=== PATIENT | female | born 1995 | race Caucasian/White ===

== ENCOUNTER 2016-12-06 00:56 | Emergency (ER) | payer MEDICAID ==
[~2016-12-06] VITALS: Ht 167.6 cm; Wt 63.6 kg
[~2016-12-06 00:56] MED LIST: MOTRIN 800800 MG/TAB PO; PERCOCET 325 MG1 TA2 PO
[2016-12-06 01:01] VITALS: BP 128/69; PULSE 78; TEMP 98.5
== END 2016-12-06 01:37 | disposition home or self-care (01) ==
LOC: COL.ER 00:56
DX: M54.6 Pain in thoracic spine (principal)

== ENCOUNTER 2016-12-13 21:43 | Emergency (ER) | payer MEDICAID ==
[~2016-12-13] VITALS: Ht 167.6 cm; Wt 63.6 kg
[2016-12-13 21:46] VITALS: BP 141/70; TEMP 98.1
[2016-12-13] MEDS ORDERED: PROTONIX 40MG T40 MG PO (22:59)
[2016-12-13 23:20] VITALS: PULSE 74
== END 2016-12-13 23:20 | disposition home or self-care (01) ==
LOC: COL.ER 21:43
DX: R07.9 Chest pain, unspecified (principal); F17.210 Nicotine dependence, cigarettes, uncomplicated

== ENCOUNTER 2017-04-01 12:09 | Emergency (ER) | payer MEDICAID ==
[~2017-04-01] VITALS: Ht 167.6 cm; Wt 65.9 kg
[~2017-04-01 12:09] MED LIST changes: +PROTONIX 40MG T40 MG PO
[2017-04-01 12:12] VITALS: BP 121/72; PULSE 81; TEMP 97.7
[2017-04-01] MEDS ORDERED: CELEXA 20MG20 MG/TAB PO (12:15)
[2017-04-01] MEDS ORDERED: MOBIC15 MG PO (12:15)
[2017-04-01] MEDS ORDERED: FLEXERIL5 MG PO (12:15)
== END 2017-04-01 14:00 | disposition home or self-care (01) ==
LOC: COL.ER 12:09
DX: J06.9 Acute upper respiratory infection, unspecified (principal); J02.9 Acute pharyngitis, unspecified; F32.9 Major depressive disorder, single episode, unspecified; F17.210 Nicotine dependence, cigarettes, uncomplicated

== ENCOUNTER 2017-04-09 17:00 | Outpatient (RCR) | payer MEDICAID ==
[~2017-04-09 17:00] MED LIST changes: +CELEXA 20MG20 MG/TAB PO; +FLEXERIL5 MG PO; +MOBIC15 MG PO
== END 2017-04-11 10:12 | disposition still patient (30) ==
LOC: WSPT 17:00
DX: M54.5 Low back pain (principal)

== ENCOUNTER → 2017-05-09 | Outpatient (CLI) | payer MEDICAID | LOC: COL.RAD 09:30 | DX: M41.9 Scoliosis, unspecified (principal) ==

== ENCOUNTER 2017-09-05 08:52 | Emergency (ER) | payer SELFPAY ==
[~2017-09-05] VITALS: Ht 167.6 cm; Wt 67.7 kg
[~2017-09-05 08:52] MED LIST changes: +VISTARIL 2525 MG/CAP PO
[2017-09-05 08:55] VITALS: TEMP 97
[2017-09-05 09:23] LABS: COLLECTION METHOD CLEAN CATCH
[2017-09-05 09:35] LABS: MUCOUS Present /lpf; PH 5 (5-8); SQUAMOUS EPITHELIAL 0-2 /hpf; URINE APPEARANCE Clear; URINE BACTERIA None Seen /hpf; URINE BILIRUBIN Negative (NEGATIVE); URINE BLOOD Negative (NEGATIVE); URINE COLOR Yellow; URINE GLUCOSE Negative (NEGATIVE); URINE KETONE Negative (NEGATIVE); URINE LEUKOCYTE ESTERASE Negative (NEGATIVE); URINE NITRATE Negative (NEGATIVE); URINE PROTEIN(semi-quant) Negative (NEGATIVE); URINE RBC 0-2 /hpf; URINE UROBILINOGEN Negative (NEGATIVE)
[2017-09-05 09:39] LABS: BASO # 0.1 (0.0-0.2); BASO % 0.8 % (0.0-2.0); EOS # 0.3 (0.0-0.7); EOS % 3.4 % (0-4.0); GRAN # 5.2 (1.4-6.5); GRAN % 64.7 % (42.2-75.2); HEMATOCRIT 43.7 % (37.0-47.0); HEMOGLOBIN 14.7 g/dl (12.5-16.0); LYMPH # 1.9 (1.2-3.4); LYMPH % 24.1 % (20.0-51.0); MEAN CELL VOLUME 88 fl (80.0-100.0); MEAN CORPUSCULAR HEMOGLOBIN 30 pg (27.0-31.0); MEAN CORPUSCULAR HGB CONC 34 g/dl (33.0-37.0); MEAN PLATELET VOLUME 9.1 fl (7.4-10.4); MONO # 0.6 (0.1-0.6); MONO % 6.9 % (1.7-9.3); PLATELET COUNT 275 K/mm3 (130-400); RED BLOOD COUNT 4.98 M/mm3 (4.10-5.30); REDCELL DISTRIBUTION WIDTH-CV 12.4 % (11.5-14.5)
[2017-09-05 09:50] LABS: ALANINE AMINOTRANSFERASE 35 U/L (9-52); ALBUMIN 4.8 gm/dL (3.5-5.0); ALKALINE PHOSPHATASE 54 U/L (50-136); ANION GAP 11 mmol/L (7-16); AST,SGOT 26 U/L (15-37); BILIRUBIN,TOTAL 0.4 mg/dL (0.0-1.0); BLOOD UREA NITROGEN 10 mg/dL (7-17); CALCIUM 9.4 mg/dL (8.4-10.2); CARBON DIOXIDE 23 mmol/L (22-30); CHLORIDE 108 mmol/L (98-107); CREATININE, serum 0.62 mg/dL (0.52-1.25); GLUCOSE 85 mg/dL (74-106); POTASSIUM 3.8 mmol/L (3.4-5.0); SODIUM 141 mmol/L (137-145); TOTAL PROTEIN 8.3 gm/dL (6.4-8.2)
[2017-09-05 09:54] LABS: C-REACTIVE PROTEIN < 0.5 mg/dL (0.0-0.9)
[2017-09-05 11:37] VITALS: BP 130/70; PULSE 64
== END 2017-09-05 11:31 | disposition home or self-care (01) ==
LOC: COL.ER 08:52
PROVIDERS: Physician Assistant
DX: R10.11 Right upper quadrant pain (principal); R10.31 Right lower quadrant pain; F32.9 Major depressive disorder, single episode, unspecified; F41.9 Anxiety disorder, unspecified; F17.210 Nicotine dependence, cigarettes, uncomplicated; Z98.818 Other dental procedure status
CPT/HCPCS: J1885; J2405; J7030; Q9967

== ENCOUNTER 2018-09-23 10:38 | Emergency (ER) | payer MEDICAID ==
[~2018-09-23] VITALS: Ht 167.6 cm; Wt 73.6 kg
[2018-09-23 10:46] VITALS: BP 138/79; TEMP 98
[2018-09-23] MEDS ORDERED: TAMIFLU 75MG75 MG PO (11:34)
[2018-09-23 11:50] VITALS: PULSE 95
== END 2018-09-23 11:50 | disposition home or self-care (01) ==
LOC: COL.ER 10:38
DX: J10.1 Influenza due to other identified influenza virus with other respiratory manifestations (principal); F41.9 Anxiety disorder, unspecified; F32.9 Major depressive disorder, single episode, unspecified; F17.210 Nicotine dependence, cigarettes, uncomplicated

== ENCOUNTER 2018-10-04 09:04 | Emergency (ER) | payer MEDICAID ==
[~2018-10-04] VITALS: Ht 170.2 cm; Wt 74.5 kg
[~2018-10-04 09:04] MED LIST changes: +TAMIFLU 75MG75 MG PO
[2018-10-04 09:11] VITALS: TEMP 98.6
[2018-10-04] MEDS ORDERED: PHENERGAN 25 TA25 MG PO (09:59)
[2018-10-04 10:52] VITALS: BP 134/59; PULSE 80
== END 2018-10-04 10:53 | disposition home or self-care (01) ==
LOC: COL.ER 09:04
DX: O21.9 Vomiting of pregnancy, unspecified (principal); O99.511 Diseases of the respiratory system complicating pregnancy, first trimester; J06.9 Acute upper respiratory infection, unspecified; Z3A.10 10 weeks gestation of pregnancy

== ENCOUNTER 2018-11-26 22:11 | Emergency (ER) | payer MEDICAID ==
[~2018-11-26] VITALS: Ht 170.2 cm; Wt 78.2 kg
[~2018-11-26 22:11] MED LIST changes: +PHENERGAN 25 TA25 MG PO
[2018-11-26 22:20] VITALS: TEMP 98.7
[2018-11-26 22:38] LABS: BASO % 0.3 % (0.0-2.0); EOS # 0.6 (0.0-0.7); EOS % 4.2 % (0-4.0); GRAN # 9.2 (1.4-6.5); GRAN % 66.2 % (42.2-75.2); HEMOGLOBIN 12.4 g/dl (12.5-16.0); LYMPH # 2.9 (1.2-3.4); LYMPH % 20.8 % (20.0-51.0); MEAN CELL VOLUME 87 fl (80.0-100.0); MEAN CORPUSCULAR HEMOGLOBIN 30 pg (27.0-31.0); MEAN CORPUSCULAR HGB CONC 34 g/dl (33.0-37.0); MEAN PLATELET VOLUME 8.9 fl (7.4-10.4); MONO # 1.1 (0.1-0.6); MONO % 8.1 % (1.7-9.3); PLATELET COUNT 255 K/mm3 (130-400); RED BLOOD COUNT 4.15 M/mm3 (4.10-5.30)
[2018-11-26 22:54] LABS: ALBUMIN 3.6 gm/dL (3.5-5.0); BILIRUBIN,TOTAL 0.1 mg/dL (0.0-1.0); CALCIUM 9.6 mg/dL (8.4-10.2); CREATININE, serum 0.48 (0.52-1.25); POTASSIUM 3.4 mmol/L (3.4-5.0); TOTAL PROTEIN 6.6 gm/dL (6.4-8.2)
[2018-11-26 23:29] LABS: COLLECTION METHOD CLEAN CATCH
[2018-11-26 23:35] LABS: PH 6 (5-8); SQUAMOUS EPITHELIAL 0-2 /hpf; URINE APPEARANCE Clear; URINE BACTERIA Rare /hpf; URINE BILIRUBIN Negative (NEGATIVE); URINE BLOOD Negative (NEGATIVE); URINE COLOR Straw; URINE GLUCOSE Negative (NEGATIVE); URINE KETONE Negative (NEGATIVE); URINE LEUKOCYTE ESTERASE Negative (NEGATIVE); URINE NITRATE Negative (NEGATIVE); URINE PROTEIN(semi-quant) Negative (NEGATIVE); URINE RBC 0-2 /hpf; URINE UROBILINOGEN Negative (NEGATIVE)
[2018-11-27 00:45] VITALS: BP 116/63; PULSE 89
== END 2018-11-27 00:45 | disposition home or self-care (01) ==
LOC: COL.ER 22:11
PROVIDERS: Physician Assistant
DX: G43.909 Migraine, unspecified, not intractable, without status migrainosus (principal); F17.210 Nicotine dependence, cigarettes, uncomplicated
CPT/HCPCS: J7030

== ENCOUNTER 2019-04-05 21:56 | Outpatient (CLI) | payer MEDICAID ==
[~2019-04-05] VITALS: Ht 167.6 cm; Wt 85.0 kg
--- NOTE | 2019-04-05 22:05 | NUR ---
G2L1 at 35 weeks and 3 days arrives to unit with complaint of decreased movement. Pt states she has felt the baby move today but not as much as usual. Denies contractions, vaginal bleeding, or LOF. US and toco explained and applied. Educated patient to really focus on feeling baby move. Vital signs obtained. Admission assessment started.
[2019-04-05 22:15] VITALS: BP 140/68; PULSE 84; TEMP 97.7
[2019-04-05] MEDS ORDERED: ZOLOFT 50MG50 MG PO (22:19)
[2019-04-05] MEDS ORDERED: FLINTSTONES COM1 CT1 PO (22:20)
[2019-04-05] MEDS ORDERED: FLEXERIL 1010 MG/TAB PO (22:21)
[2019-04-05] MEDS ORDERED: ZANTAC 7575 MG PO (22:21)
--- NOTE | 2019-04-05 22:40 | NUR ---
Apple juice drank by patient. Pt states she has felt baby move since arrival. Dr. Lundy notified.
[2019-04-05 22:42] VITALS: BP 126/60; PULSE 91
--- NOTE | 2019-04-05 22:52 | NUR ---
Discharge instructions reviewed with patient. Encouraged patient to do kick counts at home. Pt verbalized understanding. Pt seen ambulating off unit with family.
== END 2019-04-05 22:52 | disposition home or self-care (01) ==
LOC: LDRO 21:56 → LDR 22:05 → LDRO 22:52
DX: O36.8130 Decreased fetal movements, third trimester, not applicable or unspecified (principal); Z3A.35 35 weeks gestation of pregnancy
CPT/HCPCS: OP

== ENCOUNTER 2019-04-30 15:04 | Outpatient (CLI) | payer MEDICAID ==
[~2019-04-30] VITALS: Ht 170.2 cm; Wt 89.5 kg
[~2019-04-30 15:04] MED LIST changes: +FLEXERIL 1010 MG/TAB PO; +FLINTSTONES COM1 CT1 PO; +ZANTAC 7575 MG PO; +ZOLOFT 50MG50 MG PO
[2019-04-30 15:09] VITALS: BP 134/72; PULSE 95; TEMP 97.9
[2019-04-30 15:15] VITALS: BP 138/70; PULSE 82
[2019-04-30 15:24] LABS: COLLECTION METHOD CLEAN CATCH
[2019-04-30 15:27] LABS: HEMOGLOBIN 10.1 g/dl (12.5-16.0); MEAN CELL VOLUME 80 fl (80.0-100.0); MEAN CORPUSCULAR HEMOGLOBIN 26 pg (27.0-31.0); MEAN CORPUSCULAR HGB CONC 32 g/dl (33.0-37.0); MEAN PLATELET VOLUME 10.2 fl (7.4-10.4); PLATELET COUNT 256 K/mm3 (130-400); RED BLOOD COUNT 3.95 M/mm3 (4.10-5.30); REDCELL DISTRIBUTION WIDTH-CV 13.9 % (11.5-14.5)
[2019-04-30 15:30] VITALS: BP 130/67; PULSE 79
[2019-04-30 15:32] LABS: MUCOUS Present /lpf; SQUAMOUS EPITHELIAL 0-2 /hpf; URINE BACTERIA Rare /hpf; URINE RBC 0-2 /hpf
[2019-04-30 15:35] LABS: HEMATOCRIT 31.7 % (37.0-47.0); PH 6 (5-8); URINE APPEARANCE Clear; URINE BILIRUBIN Negative (NEGATIVE); URINE BLOOD Negative (NEGATIVE); URINE COLOR Yellow; URINE GLUCOSE Negative (NEGATIVE); URINE KETONE Negative (NEGATIVE); URINE LEUKOCYTE ESTERASE Negative (NEGATIVE); URINE NITRATE Negative (NEGATIVE); URINE PROTEIN(semi-quant) Negative (NEGATIVE); URINE UROBILINOGEN Negative (NEGATIVE)
[2019-04-30 15:37] LABS: ALANINE AMINOTRANSFERASE < 6 U/L (9-52); ALBUMIN 3.2 gm/dL (3.5-5.0); ALKALINE PHOSPHATASE 134 U/L (50-136); ANION GAP 8 mmol/L (7-16); AST,SGOT 18 U/L (15-37); BILIRUBIN,TOTAL 0.1 mg/dL (0.0-1.0); BLOOD UREA NITROGEN 8 mg/dL (7-17); CALCIUM 8.8 mg/dL (8.4-10.2); CARBON DIOXIDE 20 mmol/L (22-30); CHLORIDE 107 mmol/L (98-107); CREATININE, serum 0.43 (0.52-1.25); GLUCOSE 129 mg/dL (74-106); POTASSIUM 3.7 mmol/L (3.4-5.0); SODIUM 135 mmol/L (137-145); TOTAL PROTEIN 6.4 gm/dL (6.4-8.2)
[2019-04-30 15:45] VITALS: BP 119/59; PULSE 73
--- NOTE | 2019-04-30 16:00 | NUR ---
Serial blood pressures completed, labs and ua completed. results called to , patient may discharge home, follow up with scheduled induction on saturday. Patient states understanding, denies questions or concerns. instructed to go home, rest, hydrate, take tylenol as needed
== END 2019-04-30 16:00 | disposition home or self-care (01) ==
LOC: LDRO 15:04
PROVIDERS: Student in an Organized Health Care Education/Training Program
DX: O13.9 Gestational [pregnancy-induced] hypertension without significant proteinuria, unspecified trimester (principal); Z3A.39 39 weeks gestation of pregnancy

== ENCOUNTER 2019-05-03 04:56 | Inpatient (IN) | payer MEDICAID ==
[2019-05-03] VITALS (25 sets, daily range): BP systolic 122–146; BP diastolic 61–85; PULSE 63–88; TEMP 97.4–98.4
[~2019-05-03] VITALS: Ht 170.2 cm; Wt 89.5 kg
--- NOTE | 2019-05-03 04:20 | NUR ---
Ambulatory to unit for labor assessment accompanied by family, Oriented to room, monitor, plan of care. Pt reports contractions started @ 0140.
[2019-05-03 05:13] LABS: BASO # 0.1 (0.0-0.2); BASO % 0.4 % (0.0-2.0); EOS # 0.2 (0.0-0.7); EOS % 1.4 % (0-4.0); GRAN # 9.6 (1.4-6.5); GRAN % 70.9 % (42.2-75.2); HEMOGLOBIN 10.6 g/dl (12.5-16.0); LYMPH # 2.9 (1.2-3.4); LYMPH % 21.5 % (20.0-51.0); MEAN CELL VOLUME 79 fl (80.0-100.0); MEAN CORPUSCULAR HEMOGLOBIN 25 pg (27.0-31.0); MEAN CORPUSCULAR HGB CONC 32 g/dl (33.0-37.0); MEAN PLATELET VOLUME 10.7 fl (7.4-10.4); MONO # 0.7 (0.1-0.6); MONO % 5.2 % (1.7-9.3); PLATELET COUNT 294 K/mm3 (130-400); RED BLOOD COUNT 4.18 M/mm3 (4.10-5.30); REDCELL DISTRIBUTION WIDTH-CV 14.1 % (11.5-14.5)
[2019-05-03 05:18] LABS: HEMATOCRIT 33.1 % (37.0-47.0)
--- NOTE | 2019-05-03 05:20 | NUR ---
requesting epidural, anesthesia notified.
--- NOTE | 2019-05-03 05:45 | NUR ---
up to bathroom.
--- NOTE | 2019-05-03 06:15 | NUR ---
Assumed care of patient. Sits up for epidural. 0616 Local given by anesthesia Rahul Mora c.r.n.a. 0617 Space obtained by anesthesia and single shot given. Catheter placed by anesthesia.0618 Test dose given by anesthesia.
--- NOTE | 2019-05-03 07:00 | NUR ---
Rests in bed, alert. Vag check done, dilated to seven-eight. Dr. Blanco called and inquired about patient. Let her know that patient came in early dilated to five. Also let her know that patient has epidural, and is dilated to 7-8. States will be in to rupture membranes.
--- NOTE | 2019-05-03 08:00 | NUR ---
0805 Dr. Blanco here, visits with patient. 0805 Vag exam done, reports dilated to eight. Arom done, large amount of clear fluid noted. Pad changed and repositioned.
--- NOTE | 2019-05-03 08:15 | NUR ---
New orders to start pitocin. Pitocin 2 kavin units iv started as ordered and per protocol.
--- NOTE | 2019-05-03 08:30 | NUR ---
Rests in bed, alert. Peanut ball used, repositioned in bed.
--- NOTE | 2019-05-03 09:15 | NUR ---
Rests in bed with peanut ball between legs. Vag exam done, dilated to nine. heart rate down in the nintys for fifty seconds, then back up to 120s. Monitor strip showed to Dr. Blanco.
--- NOTE | 2019-05-03 09:30 | NUR ---
0936 States having some pressure. Vag exam done, complete. Dr. Blanco notified of patient complete. Also let her know that this nurse would start pushing.
--- NOTE | 2019-05-03 09:45 | NUR ---
Starts pushing with contractions. 0949 Dr. Blanco called to room for delivery. Patient pushes with Dr. Blanco. 0953 Spontaneous delivery of baby girl by Dr. Blanco. 1002 Spontaneous delivery of piticin by Dr. Blanco. Pitocin infusing at 333ccs an hour as ordered and per policy. Repair work done by Dr. Blanco.
--- NOTE | 2019-05-03 10:00 | NUR ---
Rests in bed, alert. Dr. Blanco continues with repair work. Denies any needs at this time.
--- NOTE | 2019-05-03 10:30 | NUR ---
Rests in bed, alert. Holds baby lovingly. Denies any needs at this time. Family at bedside.
--- NOTE | 2019-05-03 11:15 | NUR ---
Rests in bed, alert. Eating meal with family at bedside.
--- NOTE | 2019-05-03 12:45 | NUR ---
Rests in bed, alert. Denies any needs at this time.
--- NOTE | 2019-05-03 15:00 | NUR ---
To bathroom via wheel chair. States left leg still a little numb. Voids moderate amount of clear yellow urine. Naida-explained and done by patient. To room 216 via wheel chair. Assists to bed, able to stand on own. Encouraged to call when needed to get up next time.
--- NOTE | 2019-05-03 17:45 | NUR ---
Rests in bed, alert, baby. Tylenol 650 mg given per request and as ordered. Rhogam iv given as ordered.
[2019-05-04 01:40] VITALS: BP 148/55; PULSE 73; TEMP 97.8
[2019-05-04 08:30] VITALS: BP 148/62; PULSE 77; TEMP 97.6
[2019-05-04] MEDS ORDERED: IBU800 M1 PO (10:04)
[2019-05-04] MEDS ORDERED: PERCOCET 325 MG1 TA2 PO ×2 (10:04→10:07)
--- NOTE | 2019-05-04 14:51 | NUR ---
Initial visit attempt; Patient resting, Autistic Teacher left card of congratulations for the of her daughter and information regarding the availability of spiritual care at [facility].
== END 2019-05-04 13:30 | disposition home or self-care (01) | DRG 807 ==
LOC: LDR 04:56 → OB 04:56 → LDR 08:46 → OB 15:37
PROVIDERS: ADMIT Student in an Organized Health Care Education/Training Program
PROC: 10E0XZZ Delivery of Products of Conception, External Approach (ICD-10-PCS; principal; 2019-05-03)
PROC: 0KQM0ZZ Repair Perineum Muscle, Open Approach (ICD-10-PCS; 2019-05-03)
PROC: 10907ZC Drainage of Amniotic Fluid, Therapeutic from Products of Conception, Via Natural or Artificial Opening (ICD-10-PCS; 2019-05-03)
PROC: 3E0R3BZ Introduction of Anesthetic Agent into Spinal Canal, Percutaneous Approach (ICD-10-PCS; 2019-05-03)
PROC: 3E0234Z Introduction of Serum, Toxoid and Vaccine into Muscle, Percutaneous Approach (ICD-10-PCS; 2019-05-03)
DX: O13.4 Gestational [pregnancy-induced] hypertension without significant proteinuria, complicating childbirth (principal); Z37.0 Single live birth; Z3A.39 39 weeks gestation of pregnancy; O26.893 Other specified pregnancy related conditions, third trimester; K21.9 Gastro-esophageal reflux disease without esophagitis; O99.334 Smoking (tobacco) complicating childbirth; O99.62 Diseases of the digestive system complicating childbirth; O70.1 Second degree perineal laceration during delivery; O69.1XX0 Labor and delivery complicated by cord around neck, with compression, not applicable or unspecified; Z67.11 Type A blood, Rh negative
CPT/HCPCS: J2590; J2791; J2795; J7120

== ENCOUNTER 2022-10-29 03:18 | Emergency (ER) | payer MEDICAID ==
[~2022-10-29] VITALS: Ht 165.1 cm; Wt 86.4 kg
[~2022-10-29 03:18] MED LIST changes: +IBU800 M1 PO
[2022-10-29 03:21] VITALS: TEMP 97
[2022-10-29] MEDS ORDERED: PREDNISONE20 MG PO (03:43)
[2022-10-29 03:57] VITALS: BP 129/79; PULSE 99
== END 2022-10-29 03:57 | disposition home or self-care (01) ==
LOC: COL.ER 03:18
DX: M25.562 Pain in left knee (principal); G89.29 Other chronic pain